=== PATIENT | male | born 1950 | race Caucasian/White ===

== ENCOUNTER → 2023-11-29 08:00 | Outpatient (REF) | payer MEDICARE, OTHER, SELFPAY ==
--- NOTE | 2023-11-29 09:30 | CARDSERVLU ---
Echocardiogram with Lumason completed after protocol screening completed. Allergies verified.
Patent IV site: Rt FA
IV site flushed with 0.9% NaCl pre and post administration.
Diluted bolus method utilized to enhance visualization of ventricular caballero.
Total volume given: ___3.0_ mL
Patient tolerated all procedures well without complications.
INT placed by IV team. Definity given and INT removed by Beti lube technician.
== END ==
LOC: RCS 08:00
PROVIDERS: ATTENDING PHYSICIAN Nuclear Medicine Nuclear Cardiology; FAMILY PHYSICIAN Family Medicine
DX: I25.5 Ischemic cardiomyopathy (principal); I25.10 Atherosclerotic heart disease of native coronary artery without angina pectoris; Z95.5 Presence of coronary angioplasty implant and graft; I10 Essential (primary) hypertension
CPT/HCPCS: 93306; Q9950

== ENCOUNTER 2023-12-05 10:35 | Day surgery (SDC) | payer MEDICARE, OTHER, SELFPAY ==
[2023-12-05] VITALS (18 sets, daily range): BP systolic 99–139; BP diastolic 60–84; BMI 28.0
[2023-12-05 12:02] LABS: Hematocrit 41.9 % (39.0-52.0); Hemoglobin 14.6 g/dL (13.0-18.0); Mean Corp Hgb Conc. 34.8 g/dL (33.0-37.0); Mean Corpuscular Hgb 31.6 pg (27.0-31.0); Mean Corpuscular Volume 90.7 fL (80.0-94.0); Mean Platelet Volume 10.9 fL (7.4-10.4); Platelet Count 275 10^3/uL (130-400); Red Blood Cell Count 4.62 10^6/uL (4.70-6.10); Red Cell Dist. Width 12.8 % (11.5-14.5)
[2023-12-05 12:16] LABS: ALT (SGPT) 43 U/L (0-50); AST (SGOT) 54 U/L (17-59); Albumin 4.5 g/dl (3.5-5.0); Alkaline Phosphatase 99 U/L (38-126); Blood Urea Nitrogen 17 mg/dl (9-20); Calcium 9.3 mg/dl (8.4-10.2); Carbon Dioxide 26 mmol/L (22-30); Chloride 105 mmol/L (98-107); Estimated Creatinine Clearance 81 ml/min; Glucose 93 mg/dl (70-99); Potassium 4.9 mmol/L (3.5-5.1); Sodium 137 mmol/L (135-145); Total Bilirubin 0.8 mg/dl (0.2-1.3); Total Protein 7.3 g/dl (6.3-8.2); eGFR > 60.00
--- NOTE | 2023-12-05 15:04 | ITS.CL.CATH ---
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
Cardiac Catheterization
Procedure Report:
LEFT AND RIGHT HEART CATHETERIZATION
Date of Procedure: December 05, 2023
Referring: Syed Mireles DO
PROCEDURES:
1. Coronary angiogram.
2. Right heart catheterization.
3. Ultrasound-guided access
INDICATION: Mr. Ramirez is a 73-year-old gentleman with past medical history of hypertension, hyperlipidemia, prior CAD status post multiple stents in the LAD, ischemic cardiomyopathy, LVEF of 40 to 45% which recently was found to be decreased
further to 15 to 20% in the setting of progressive fatigue, dyspnea on exertion and an abnormal stress test for which patient is now referred for a left and right heart catheterization. He denies any anginal symptoms. No other heart failure
symptoms like lower extremity edema, orthopnea or PND.
ACCESS:
1. Left radial artery, 6 Slovak sheath, under ultrasound guidance.
2. Right common femoral vein, 6 Slovak sheath, under ultrasound guidance using a micropuncture kit.
HEMODYNAMICS : (mmHg)
RA (m) : 10
RV (s/d,m) : 28, 13
PA (s/d, m) : ,
PCWP (m) : 14
PA saturation: 68.1% on room air
AO saturation: 97.9% on room air
RA saturation: 70% on room air
Heart rate: 60 bpm
Cardiac Output : 4.22 to L/min
Cardiac Index : 2.09 L/min/m-2
Systemic vascular resistance: 1403 dsc^(-5)
Pulmonary vascular resistance: 1.2 li unit
AO (s/d) : 114/63
CORONARY FINDINGS
DOMINANCE: Right
LEFT MAIN: Left main artery is a large-caliber, short vessel which gives rise to the left anterior descending artery and the left circumflex artery. There is minimal luminal irregularities.
LEFT ANTERIOR DESCENDING: The left anterior descending artery is a large-caliber vessel which gives rise to 2 small caliber diagonal branches as it courses through the anterior interventricular groove towards the apex. There is moderate degree of
tortuosity. Prior stents are widely patent. Otherwise there is mild diffuse disease. The first diagonal branch is a very small caliber vessel with moderate to severe diffuse atherosclerotic plaque. A second diagonal branch is also a small
caliber branch with 60% ostial and 40% proximal stenosis.
CIRCUMFLEX: The left circumflex artery is a medium caliber vessel which gives rise to 2 very small caliber OM1 and 2; third large caliber branching obtuse marginal branch. There is mild diffuse atherosclerotic plaque
RIGHT CORONARY ARTERY: The right coronary artery is a large-caliber, dominant vessel which gives rise to the right posterior descending artery and the right posterolateral system. There is mild to moderate diffuse atherosclerotic plaque in the mid
to distal RCA with diffuse disease up to 70% in the proximal portion of the right PDA.
SEDATION: 48 minutes of procedural sedation was utilized. An independent medical equipment technician was present to assist with and help manage the patient's level of consciousness and physiologic status.
RADIATION SUMMARY: Fluoro Time (min): 4.2, Dose (mGy): 422.1, DAP (Gy.cm2) : 33.0
Closure Device:
1. Vascular band over the left radial artery, 11 cc of air.
2. Manual pressure was held over the right common femoral venous access site with successful hemostasis.
CONCLUSIONS
1. Prior LAD stents are widely patent.
2. RPDA and branch vessel disease, out of proportion to explain worsening cardiomyopathy with LVEF down to 15%.
3. Mildly elevated right and left-sided filling pressures with borderline low cardiac output, and mildly elevated systemic vascular resistance.
RECOMMENDATIONS
1. Optimization of goal-directed medical therapy for underlying mixed cardiomyopathy (out of proportion to be explained by underlying coronary artery disease)
2. Close outpatient cardiology follow-up and repeat echocardiogram in 3 months.
Copy to: Syed Mireles DO
Verna Jean Baptiste MD, FACC, [facility]
[2023-12-05] MEDS: NSS 1000 IV (15:09)
== END 2023-12-05 18:50 | disposition home or self-care (01) ==
LOC: CATH 10:35
PROVIDERS: ATTENDING PHYSICIAN Internal Medicine Interventional Cardiology; FAMILY PHYSICIAN Family Medicine; OTHER PHYSICIAN Nuclear Medicine Nuclear Cardiology
DX: I25.10 Atherosclerotic heart disease of native coronary artery without angina pectoris (principal); Z95.5 Presence of coronary angioplasty implant and graft; I10 Essential (primary) hypertension; I42.8 Other cardiomyopathies; R06.09 Other forms of dyspnea
CPT/HCPCS: 99153; 99152; 76937; 80053; 85027; 93456; C1894; Q9967

== ENCOUNTER 2023-12-07 13:56 | Emergency (ER) | payer MEDICARE, OTHER, SELFPAY ==
[2023-12-07 13:59] VITALS: BP 130/92
[2023-12-07 14:15] VITALS: BP 123/78
[2023-12-07 14:17] VITALS: BP 123/78
--- NOTE | 2023-12-07 14:44 | ED.GENMED ---
History of Present Illness
<Kay Kraus PA-C - Last Filed: 12/08/23 08:55>
General
Chief Complaint: Chest Pain
Source: patient
Exam Limitations: none
Time Seen by Provider: 12/07/23 14:23
Nursing documentation reviewed up to this point in time: agreed with
Travel History
Have you had any contact with someone who has COVID-19?: No
Do you have any symptoms of coronavirus? Fever > 100 degrees, chills, cough, shortness of breath, sore throat, loss of taste or smell, muscle aches, or headache?: No
History of Present Illness
History of Present Illness:
73 y/o M with h/o [place], s/p LAD stent [address] varela
has had ongoing CARL for a few months with EF which was 40% after his [place] down to 15-20% on recent echo
had a L & R heart cath on 12/[address] caraballo showing patent LAD stent but some RPDA and branch vessel disease that doesn't explain his cardiomyopathy
plan was to treat with farxiga and entresto for a few mo and reassess
pt has had some intermittent chest tightness startinga round 2 am when he was awake but it was intermittent and minimal
he told his about it but he had no other symptoms
he ate soup for lunch and at the end started havin gmore significant left sided chest pain iup to left neck and shoulder and faustina to upper abdomen
it was 8/10
he didn't take anything for it but decided to come in
no associated sob, pleuriti cpain, cough, cold symptoms, syncope, fever.
he has 3/10 pain now
nothing make it better or worse
no alcohol use
Past History
<Kay Kraus PA-C - Last Filed: 12/08/23 08:55>
Past History
ED Past Medical History: CAD, HTN, Hypercholesterolemia and Hypothyroidism
ED Past Surgical History: Orthopedic
Social History
Tobacco: Non-smoker
Personal:
Living: with family
Family History
Family History: Negative Early CAD
Review of Systems
<Kay Kraus PA-C - Last Filed: 12/08/23 08:55>
Review of Systems
Allergies reviewed?: Yes
All Other Systems: Not applicable
Phy Exam
<Kay Kraus PA-C - Last Filed: 12/08/23 08:55>
Physical Exam
Physical Exam:
GENERAL: Alert , in no apparent distress, well appearing
EYE: pupils equal and reactive
NECK: Supple, nontender
ENT: o/p clr, mmm.
chest wall:' mild tenderness Left upper chest wall no rash
CARDIAC: Regular rate and rhythm .no edema, no appreciated murmur
LUNGS: Clear breath sounds bilaterally, no acute respiratory distress, no wheezes/rales/rhonchi
ABDOMEN: Soft, without focal tenderness, no r/g, no cvat, normal bowel sounds
NEUROLOGICAL: Alert and oriented, no focal neuro deficits
SKIN: Warm and dry, skin intact.
MUSCULOSKELETAL: No edema, well perfused. neg nano's sign
PSYCH: Normal and appropriate interaction.
Scores
<Kay Kraus PA-C - Last Filed: 12/08/23 08:55>
Heart Score for Chest Pain Patients
Heart Score for Chest Pain Patients: 5
Heart Score Risk: 20.3% MACE over next 6 weeks
<Higinio Mason PA-C - Last Filed: 12/07/23 20:11>
Heart Score for Chest Pain Patients
STEMI patient?: No
History: Slightly or Non-Suspicious
ECG: Nonspecific Repolarization
Age: >/= 65 years
Risk Factors: >/= 3 Risk Factors or History of CAD
Troponin: </= Normal Limit
Heart Score for Chest Pain Patients: 5
Heart Score Risk: 20.3% MACE over next 6 weeks
Course
<Kay Kraus PA-C - Last Filed: 12/08/23 08:55>
Orders/Labs/Results
Orders:
Orders
12/07/23 13:58
Electrocardiogram (*1) Urgent
Reason for Study: Chest Pain
EKG- Treatment ONCE
12/07/23 14:40
CR Chest - 2 Views Urgent
Comment:
Reason For Exam: chest pain
12/07/23 14:49
Complete Blood Count/With Diff Urgent
Comprehensive Metabolic Panel Urgent
Lipase Urgent
NT-proBNP Urgent
Troponin I Urgent
12/07/23 17:17
EKG- Treatment ONCE
12/07/23 18:10
Troponin I Urgent
12/07/23 18:17
Electrocardiogram (*1) Urgent
Reason for Study: Chest Pain
Abnormal Lab Results
12/07/23
14:49
RBC 4.45 L 10^6/uL
(4.70-6.10)
MCH 32.4 H pg
(27.0-31.0)
MPV 11.0 H fL
(7.4-10.4)
Absolute Monos (auto) 0.8 H 10^3/uL
(0.1-0.6)
BUN 22 H mg/dl
(9-20)
Glucose 160 H mg/dl
(70-99)
12/07/23 14:49
12/07/23 14:49
Vital Signs
Initial and Last Documented VS:
Initial Vital Signs
Temp Pulse Resp BP Pulse Ox
97.7 F 64 18 130/92 99
12/07/23 13:59 12/07/23 13:59 12/07/23 13:59 12/07/23 13:59 12/07/23 13:59
Last Documented Vital Signs
Temp Pulse Resp BP Pulse Ox
97.7 F 52 14 140/71 99
12/07/23 13:59 12/07/23 19:00 12/07/23 19:00 12/07/23 19:00 12/07/23 19:00
<Elroy Giraldo MD - Last Filed: 12/07/23 17:25>
Orders/Labs/Results
Orders:
Orders
12/07/23 13:58
Electrocardiogram (*1) Urgent
Reason for Study: Chest Pain
EKG- Treatment ONCE
12/07/23 14:40
CR Chest - 2 Views Urgent
Comment:
Reason For Exam: chest pain
12/07/23 14:49
Complete Blood Count/With Diff Urgent
Comprehensive Metabolic Panel Urgent
Lipase Urgent
NT-proBNP Urgent
Troponin I Urgent
12/07/23 17:17
EKG- Treatment ONCE
12/07/23 18:10
Troponin I Urgent
12/07/23 18:17
Electrocardiogram (*1) Urgent
Reason for Study: Chest Pain
Abnormal Lab Results
12/07/23
14:49
RBC 4.45 L 10^6/uL
(4.70-6.10)
MCH 32.4 H pg
(27.0-31.0)
MPV 11.0 H fL
(7.4-10.4)
Absolute Monos (auto) 0.8 H 10^3/uL
(0.1-0.6)
BUN 22 H mg/dl
(9-20)
Glucose 160 H mg/dl
(70-99)
12/07/23 14:49
12/07/23 14:49
Vital Signs
Initial and Last Documented VS:
Initial Vital Signs
Temp Pulse Resp BP Pulse Ox
97.7 F 64 18 130/92 99
12/07/23 13:59 12/07/23 13:59 12/07/23 13:59 12/07/23 13:59 12/07/23 13:59
Last Documented Vital Signs
Temp Pulse Resp BP Pulse Ox
97.7 F 52 14 140/71 99
12/07/23 13:59 12/07/23 19:00 12/07/23 19:00 12/07/23 19:00 12/07/23 19:00
<Higinio Mason PA-C - Last Filed: 12/07/23 20:11>
Orders/Labs/Results
Orders:
Orders
12/07/23 13:58
Electrocardiogram (*1) Urgent
Reason for Study: Chest Pain
EKG- Treatment ONCE
12/07/23 14:40
CR Chest - 2 Views Urgent
Comment:
Reason For Exam: chest pain
12/07/23 14:49
Complete Blood Count/With Diff Urgent
Comprehensive Metabolic Panel Urgent
Lipase Urgent
NT-proBNP Urgent
Troponin I Urgent
12/07/23 17:17
EKG- Treatment ONCE
12/07/23 18:10
Troponin I Urgent
12/07/23 18:17
Electrocardiogram (*1) Urgent
Reason for Study: Chest Pain
Abnormal Lab Results
12/07/23
14:49
RBC 4.45 L 10^6/uL
(4.70-6.10)
MCH 32.4 H pg
(27.0-31.0)
MPV 11.0 H fL
(7.4-10.4)
Absolute Monos (auto) 0.8 H 10^3/uL
(0.1-0.6)
BUN 22 H mg/dl
(9-20)
Glucose 160 H mg/dl
(70-99)
12/07/23 14:49
12/07/23 14:49
Vital Signs
Initial and Last Documented VS:
Initial Vital Signs
Temp Pulse Resp BP Pulse Ox
97.7 F 64 18 130/92 99
12/07/23 13:59 12/07/23 13:59 12/07/23 13:59 12/07/23 13:59 12/07/23 13:59
Last Documented Vital Signs
Temp Pulse Resp BP Pulse Ox
97.7 F 52 14 140/71 99
12/07/23 13:59 12/07/23 19:00 12/07/23 19:00 12/07/23 19:00 12/07/23 19:00
<Kay Kraus PA-C - Last Filed: 12/08/23 08:55>
MDM/Problems Addressed
Differential Diagnosis Includes:
acs, chest wall pain, gerd,
MDM/Problems Addressed:
73 y/o M with h/o LAD stent
had recent cardiac cath 2 days ago for cardiomyopathy
no obvious signifciant disease to explain EF 15%
on farxiga
here for chest pain, worse at 1315 today at rest, radiating to neck
feels better now than it did
not pleuritic
on exam looks comfortable, stable vitals, nontoxic
slight tenderness to left chesrt wall
abdomen notnender
no concerning symptoms or signs of PE.
ekg nonischemic
1st trop neg
spoke with dr. barajas from [facility] who reviewed the chart and did not think that this patient would require further work up if the 2 trop onins were negative
pt was also seen by ed attending who also spoke directly with the piano technician to confirm that there would not be further work up inpatient needed if the troponins remained negative, despite his low EF;
1830
pt has remained pain free
he is hungry and is requesting to eat
repeat trop and ekg to be done soon and if neg, pt discharged home
if trop bump, then will admit
<Higinio Mason PA-C - Last Filed: 12/07/23 20:11>
*Critical Care Note
Total Time (30-74mins, 75-104mins- exclusive of procedures): Not Applicable
<Higinio Mason PA-C - Last Filed: 12/07/23 20:11>
Update Note
Update Note:
1800: Assumed care of pt from Deedee Kraus PA-C. Pt is 2d s/p cardiac cath due to acute cardiomyopathy. EF of 15%. Arrives with acute chest pain. Stable in ED, pain now resolved. Awaiting repeat trop
190: Repeat trop negative, stable for d/c
ED Attending Note
<Kay Kraus PA-C - Last Filed: 12/08/23 08:55>
-
Portions of this chart may have been created with voice recognition software.� Occasional wrong word or��sound alike� substitutions may have occurred due to the inherent limitations of voice recognition software.
<Elroy Giraldo MD - Last Filed: 12/07/23 17:25>
ED Attending Note
I performed the substantive portion of visit, reviewed & personally made and approve the management plan that is documented in note by myself or KATHRINE.: Yes
I performed a history and physical exam of patient and discussed management with resident, I reviewed resident's note and agree with documented findings and plan of care.: Yes
ED Attending Note:
73-year-old male with a cardiac history presents with episodes of left sided chest tightness. Had an episode at 2 AM and a recurring episode at 115. No pleuritic pain ongoing shortness of breath for months. This led to an echocardiogram that
showed 15 to 20% EF. Catheterization done 12/05. Currently treated with Farxiga and Entresto.
On exam patient is nontoxic in no distress. Lungs are clear and equal. Heart regular rate and rhythm. Abdomen nontender. Extremities are unremarkable.
EKG with no acute changes. Troponin is stable. Chest x-ray is negative. proBNP is stable. Patient is currently asymptomatic. I discussed with patient's piano technician. Given his stable recent cardiac catheterization they feel if he has 2
negative troponins that from a cardiac standpoint he is clear and no further testing is needed. Highly doubt pulmonary emboli or other serious etiology. Awaiting repeat Trope and EKG and again if patient remains stable will be discharged to
follow-up
Discharge Plan
Departure
Patient Disposition: Home (Routine Discharge)
Date of Disposition: 12/07/23
Time of Disposition: 19:05
Patient with high blood pressure during this ER visit?: No
Condition: Fair
Covid-19: Not Applicable
Discharge Problem:
Chest pain
Instructions: Chest Pain DCA Follow Up
Prescriptions:
No Action
aspirin 81 MG tablet,chewable
81 mg PO DAILY Qty: 30 0RF
multivitamin Tablet
1 tab PO QPM
carvedilol 12.5 mg tablet
12.5 mg PO BID
atorvastatin 80 MG tablet
80 mg PO QPM
levothyroxine 50 MCG tablet
50 mcg PO DAILY@0700
gabapentin 300 mg capsule
300 mg PO BID
Entresto 24-26 mg tablet
1 tab PO BID Qty: 60 5RF
Rx Instructions:
Start on 12/07/23 am
dapagliflozin propanediol [Farxiga] 10 mg tablet
10 mg PO DAILY Qty: 30 5RF
Referrals:
Omkar Mtz MD [Family Provider] - Follow up in 2-3 days
Activity Restrictions/Additional Instructions:
WE ARE NOT SURE THE CAUSE OF YOUR CHEST PAIN
YOU HAD A WORK UP FOR RULING OUT EMERGENT CAUSES.
YOU SHOULD FOLLOW UP WITH YOUR PRICING LEAD THIS WEEK
RETURN FOR WORSENING SYPMTOMS
FOR NOW, AVOID STRENUOUS ACTIVITY
RETURN NEEDED.
Interventions
Interventions:
*Risk Screen - Suicide Last Done: 12/07/23 14:18
*General Assessment Last Done: 12/07/23 14:16
*Neglect/Abuse Screening Last Done: 12/07/23 14:18
ED- Fall Risk Assessment Last Done: 12/07/23 19:17
*ED COVID-19 Vaccine History Last Done: 12/07/23 14:16
*Nursing Disposition Last Done: 12/07/23 19:16
ED- Cardiac Assessment Last Done: 12/07/23 14:18
Discharge Date and Time
Discharge Date/Time: 12/07/23 19:17
[2023-12-07 15:38] LABS: % Basophils 0.5 % (0-2); % Eosinophils 3.8 % (0-6); % Immature Granulocytes 0.3 % (0-0.5); % Lymphocytes 29.3 % (20.5-51.1); % Monocytes 8.2 % (1.7-9.3); % Neutrophils 57.9 % (42.2-75.2); Absolute Basophils 0.1 10^3/uL (0-0.2); Absolute Eosinophils 0.4 10^3/uL (0-0.7); Absolute Monocytes 0.8 10^3/uL (0.1-0.6); Absolute Neutrophils 5.9 10^3/uL (1.4-6.5); Hematocrit 40.9 % (39.0-52.0); Hemoglobin 14.4 g/dL (13.0-18.0); Mean Corp Hgb Conc. 35.2 g/dL (33.0-37.0); Mean Corpuscular Hgb 32.4 pg (27.0-31.0); Mean Corpuscular Volume 91.9 fL (80.0-94.0); Nucleated Red Blood Cells % 0 % (-); Platelet Count 260 10^3/uL (130-400); Red Blood Cell Count 4.45 10^6/uL (4.70-6.10); Red Cell Dist. Width 12.5 % (11.5-14.5); White Blood Cell Count 10.2 10^3/uL (4.8-10.8)
[2023-12-07 15:58] LABS: ALT (SGPT) 43 U/L (0-50); AST (SGOT) 51 U/L (17-59); Albumin 4.1 g/dl (3.5-5.0); Alkaline Phosphatase 106 U/L (38-126); Blood Urea Nitrogen 22 mg/dl (9-20); Calcium 9.3 mg/dl (8.4-10.2); Carbon Dioxide 24 mmol/L (22-30); Chloride 105 mmol/L (98-107); Glucose 160 mg/dl (70-99); Lipase 161 U/L (23-300); Potassium 4.6 mmol/L (3.5-5.1); Sodium 136 mmol/L (135-145); Total Bilirubin 0.7 mg/dl (0.2-1.3); Total Protein 6.8 g/dl (6.3-8.2); eGFR > 60.00
[2023-12-07 16:13] LABS: NT-proBNP 194 pg/ml; Troponin I 0.013 ng/ml
[2023-12-07 18:10] VITALS: BP 129/76
[2023-12-07 19:00] VITALS: BP 140/71
[2023-12-07 19:00] LABS: Troponin I 0.013 ng/ml
== END 2023-12-07 19:17 | disposition home or self-care (01) ==
LOC: EMR 13:56
PROVIDERS: Physician Assistant; EMERGENCY PHYSICIAN Emergency Medicine; FAMILY PHYSICIAN Family Medicine
DX: R07.89 Other chest pain (principal); I25.2 Old myocardial infarction; Z95.5 Presence of coronary angioplasty implant and graft
CPT/HCPCS: 99285; 71046; 80053; 83690; 83880; 84484; 85025; 93005

== ENCOUNTER → 2023-12-14 07:04 | Outpatient (REF) | payer MEDICARE, OTHER, SELFPAY ==
[2023-12-14 08:37] LABS: Blood Urea Nitrogen 27 mg/dl (9-20); Calcium 9.7 mg/dl (8.4-10.2); Carbon Dioxide 28 mmol/L (22-30); Chloride 100 mmol/L (98-107); Glucose 110 mg/dl (70-99); Magnesium 2.2 mg/dl (1.6-2.3); Potassium 4.3 mmol/L (3.5-5.1); Sodium 137 mmol/L (135-145); eGFR > 60.00
== END ==
LOC: REG 07:04
PROVIDERS: ATTENDING PHYSICIAN Internal Medicine Interventional Cardiology; FAMILY PHYSICIAN Family Medicine; OTHER PHYSICIAN Nuclear Medicine Nuclear Cardiology
DX: I50.9 Heart failure, unspecified (principal)
CPT/HCPCS: 36415; 80048; 83735

== ENCOUNTER → 2023-12-28 09:13 | Outpatient (REF) | payer MEDICARE, OTHER, SELFPAY ==
[2023-12-28 10:46] LABS: PSA, Total - Diagnostic 7.08 ng/ml (0.0-4.0)
== END ==
LOC: RAD 09:13
PROVIDERS: ATTENDING PHYSICIAN Internal Medicine Hematology & Oncology
DX: C61 Malignant neoplasm of prostate (principal)
CPT/HCPCS: 36415; 84153

== ENCOUNTER 2024-01-17 06:35 | Outpatient (RCR) | payer MEDICARE, OTHER, SELFPAY | END 2024-01-17 23:59 | disposition home or self-care (01) | LOC: CRHB 06:35 | PROVIDERS: ATTENDING PHYSICIAN Nuclear Medicine Nuclear Cardiology; FAMILY PHYSICIAN Family Medicine | DX: I50.20 Unspecified systolic (congestive) heart failure (principal); I25.5 Ischemic cardiomyopathy; I10 Essential (primary) hypertension; Z95.5 Presence of coronary angioplasty implant and graft | CPT/HCPCS: G0422 ==

== ENCOUNTER 2024-02-17 06:32 | Outpatient (RCR) | payer MEDICARE, OTHER, SELFPAY | END 2024-02-17 23:59 | disposition home or self-care (01) | LOC: CRHB 06:32 | PROVIDERS: ATTENDING PHYSICIAN Nuclear Medicine Nuclear Cardiology; FAMILY PHYSICIAN Family Medicine | DX: I50.22 Chronic systolic (congestive) heart failure (principal); I50.20 Unspecified systolic (congestive) heart failure (principal); I25.5 Ischemic cardiomyopathy; I25.10 Atherosclerotic heart disease of native coronary artery without angina pectoris; Z95.5 Presence of coronary angioplasty implant and graft | CPT/HCPCS: G0422; G0423 ==

== ENCOUNTER 2024-02-28 06:51 | Outpatient (RCR) | payer MEDICARE, OTHER, SELFPAY | END 2024-02-28 23:59 | disposition home or self-care (01) | LOC: CRHB 06:51 | PROVIDERS: ATTENDING PHYSICIAN Nuclear Medicine Nuclear Cardiology; FAMILY PHYSICIAN Family Medicine | DX: I50.22 Chronic systolic (congestive) heart failure (principal) | CPT/HCPCS: G0422; G0423 ==

== ENCOUNTER → 2024-03-04 07:38 | Outpatient (REF) | payer MEDICARE, OTHER, SELFPAY ==
--- NOTE | 2024-03-04 10:05 | CARDSERVLU ---
Echocardiogram with Lumason completed after protocol screening completed. Allergies verified.
Patent IV site: _LAC____
IV site flushed with 0.9% NaCl pre and post administration.
Diluted bolus method utilized to enhance visualization of ventricular caballero.
Total volume given: __5__ mL
Patient tolerated all procedures well without complications.
== END ==
LOC: RCS 07:38
PROVIDERS: ATTENDING PHYSICIAN Internal Medicine Interventional Cardiology; FAMILY PHYSICIAN Family Medicine
DX: I25.5 Ischemic cardiomyopathy (principal)
CPT/HCPCS: 93308; Q9950

== ENCOUNTER → 2024-04-02 12:36 | Outpatient (REF) | payer MEDICARE, OTHER, SELFPAY | LOC: RAD 12:36 | PROVIDERS: ATTENDING PHYSICIAN Physician Assistant; FAMILY PHYSICIAN Family Medicine | DX: M79.661 Pain in right lower leg (principal) | CPT/HCPCS: 93971 ==

== ENCOUNTER → 2024-05-04 08:06 | Day surgery (SDC) | payer MEDICARE, OTHER, SELFPAY ==
[2024-04-24 10:51] VITALS: BMI 26.8
[2024-05-04] VITALS (10 sets, daily range): BP systolic 98–132; BP diastolic 60–77; BMI 26.6
--- NOTE | 2024-05-04 09:46 | W.ICD.CONTRA ---
Post ICD/RELATIONS SPECIALIST-D
-
History of [place]?: Yes
LV Function
Left ventricular function study result?: Ejection Fraction </= 35%
ACEI/ARB/ARNI
Patient already on ACEI/ARB/ARNI: Yes
Beta-Hattie
Patient already on Beta Hattie: Yes
--- NOTE | 2024-05-04 13:05 | ITS.CL.ICD ---
Casing Cleaner - ICD
Implantable Cardioverter Defibrillator
Procedure Report:
ICD IMPLANTATION REPORT
Date of Procedure: May 04, 2024
Primary Care Provider:
PROCEDURES:
ICD Implant
INDICATION FOR PROCEDURE:
Heart failure with reduced ejection fraction and [place] heart association class III congestive heart failure. Ischemic cardiomyopathy.
Duration of HF > 3 mo despite guideline directed medical therapy at maximally tolerated doses (Entresto, Coreg, Aldactone, Jardiance, aspirin, Aldactone)
Life expectancy > 1 year.
Primary prevention
Lidocaine with epi was used for local anesthesia. Central venous access was obtained via axillary venipuncture. An incision was made along the left chest and a pre-pectoral pocket was formed. Using a Seldinger technique and peel-away sheaths, the
pacing leads were placed under fluoroscopic guidance.
Antibiotic pouch was used
Once testing (see below) showed adequate and stable function, the leads were secured using the suture sleeves. The pocket was liberally irrigated with antibiotic solution. The leads were connected to the generator header and the leads and
generator were placed within the pocket. Fluoroscopy confirmed stable lead position. The pocket was closed in the typical fashion.
FLUOROSCOPY:
Fluoroscopy was used to guide lead placement.
IMPLANTS:
ICD Medtronic [id number], SN [id number], Left Pectoral
RA Medtronic 5076, SN [id number], RAA
RV Medtronic 6935, SN [id number], RV apical septum
DEVICE TESTING:
Sensing: RA 2.2 mV, RV 8 mV
Capture: RA 0.75 V@0.5ms, RV 0.75 V@0.5ms
Ohms: RA 570, RV 620
FINAL PROGRAMMING:
Josue Pacing: AAIR <=> DDDR 50-130 ppm
Tachy parameters:
VF: 188 bpm, ATP X 1, Shocks
VT: 150 bpm, Monitor
COMPLICATIONS:
None
CONCLUSIONS:
Successful implant of dual chamber ICD system.
RECOMMENDATIONS:
Post op care (tele, CXR, IV abx).
In-Office wound check in 5-7 days.
Copy to:
Dr. Michael Mtz
Dr. Syed Mireles
--- NOTE | 2024-05-04 14:21 | W.PN.UPDATE ---
Update Note
Progress Note Update
Pt seen post DC ICD implant. Left ACW w/aquacel dressing CDI, pressure dressing on top, no ht/bleeding, non tender. Post EKG APaced 50, no acute changes. Post CXR w/stable lead position, no pneumothorax. Activity limitations reviewed w/pt, .
Incision check at [facility] in 1 week. Home later today if device site/tele remain stable.
[2024-05-04] MEDS: ANCEF 5 IV (16:50)
[2024-05-04] MEDS: FLUSH (NSS) 1 FLUSH IV (16:51)
== END | disposition home or self-care (01) ==
LOC: CATH 08:06
PROVIDERS: ATTENDING PHYSICIAN Internal Medicine Cardiovascular Disease; FAMILY PHYSICIAN Family Medicine; OTHER PHYSICIAN Nuclear Medicine Nuclear Cardiology
DX: I11.0 Hypertensive heart disease with heart failure (principal); I50.22 Chronic systolic (congestive) heart failure; I25.5 Ischemic cardiomyopathy; R06.09 Other forms of dyspnea; R42 Dizziness and giddiness; R00.2 Palpitations; I25.10 Atherosclerotic heart disease of native coronary artery without angina pectoris; E78.5 Hyperlipidemia, unspecified; E03.9 Hypothyroidism, unspecified; Z85.46 Personal history of malignant neoplasm of prostate; Z95.5 Presence of coronary angioplasty implant and graft; Z79.82 Long term (current) use of aspirin; Z79.84 Long term (current) use of oral hypoglycemic drugs
CPT/HCPCS: 33249; C1892; 71045; 93005; C1721; C1777; C1898; Q9967

== ENCOUNTER → 2024-07-14 09:40 | Outpatient (REF) | payer MEDICARE, OTHER, SELFPAY ==
[2024-07-14 12:46] LABS: PSA, Total - Diagnostic 7.52 ng/ml (0.0-4.0)
== END ==
LOC: REG 09:40
PROVIDERS: ATTENDING PHYSICIAN Urology; FAMILY PHYSICIAN Family Medicine
DX: C61 Malignant neoplasm of prostate (principal)
CPT/HCPCS: 36415; 84153

== ENCOUNTER → 2024-08-25 07:30 | Outpatient (REF) | payer MEDICARE, OTHER, SELFPAY ==
[2024-08-25 09:19] LABS: ALT (SGPT) 33 U/L (0-50); AST (SGOT) 41 U/L (17-59); Albumin 4.4 g/dl (3.5-5.0); Alkaline Phosphatase 103 U/L (38-126); Blood Urea Nitrogen 20 mg/dl (9-20); Calcium 9.8 mg/dl (8.4-10.2); Carbon Dioxide 27 mmol/L (22-30); Chloride 103 mmol/L (98-107); Glucose 94 mg/dl (70-99); HDL Cholesterol 53 mg/dl; LDL Cholesterol, Calculated 71 mg/dl; Potassium 4.8 mmol/L (3.5-5.1); Sodium 143 mmol/L (135-145); Total Bilirubin 0.9 mg/dl (0.2-1.3); Total Cholesterol 144 mg/dl (50-199); Total Protein 7.1 g/dl (6.3-8.2); Triglyceride 102 mg/dl (10-149); Very Low Density Lipoprotein 20 mg/dl (0-30); eGFR > 60.00
--- NOTE | 2024-08-25 09:31 | CARDSERVLU ---
Echocardiogram with Lumason completed after protocol screening completed. Allergies verified.
Patent IV site: __new start 1st attempt 24 ___
IV site flushed with 0.9% NaCl pre and post administration.
Diluted bolus method utilized to enhance visualization of ventricular caballero.
Total volume given: __4.0__ mL
dcd at completion of test
Patient tolerated all procedures well without complications.
== END ==
LOC: RCS 07:30
PROVIDERS: ATTENDING PHYSICIAN Nuclear Medicine Nuclear Cardiology; FAMILY PHYSICIAN Family Medicine
DX: I25.5 Ischemic cardiomyopathy (principal); I25.10 Atherosclerotic heart disease of native coronary artery without angina pectoris; E78.5 Hyperlipidemia, unspecified
CPT/HCPCS: 36415; 80053; 80061; 93306; Q9950

== ENCOUNTER → 2024-12-29 08:57 | Outpatient (REF) | payer MEDICARE, OTHER, SELFPAY | LOC: REG 08:57 | PROVIDERS: ATTENDING PHYSICIAN Urology; FAMILY PHYSICIAN Family Medicine | DX: C61 Malignant neoplasm of prostate (principal) | CPT/HCPCS: 36415; 84153 ==

== ENCOUNTER → 2025-02-24 09:06 | Outpatient (REF) | payer MEDICARE, OTHER, SELFPAY ==
[2025-02-24 11:19] LABS: Free T4 1.21 ng/dl (0.78-2.19)
[2025-02-24 11:32] LABS: TSH 2.26 uIU/ml (0.47-4.68)
[2025-02-24 11:55] LABS: ALT (SGPT) 33 U/L (0-50); AST (SGOT) 38 U/L (17-59); Albumin 4.5 g/dl (3.5-5.0); Alkaline Phosphatase 102 U/L (38-126); Blood Urea Nitrogen 22 mg/dl (9-20); Calcium 9.8 mg/dl (8.4-10.2); Carbon Dioxide 24 mmol/L (22-30); Chloride 105 mmol/L (98-107); Glucose 98 mg/dl (70-99); HDL Cholesterol 46 mg/dl; LDL Cholesterol, Calculated 77 mg/dl; Potassium 4.4 mmol/L (3.5-5.1); Sodium 138 mmol/L (135-145); Total Bilirubin 1.1 mg/dl (0.2-1.3); Total Cholesterol 143 mg/dl (50-199); Total Protein 6.9 g/dl (6.3-8.2); Triglyceride 101 mg/dl (10-149); Very Low Density Lipoprotein 20 mg/dl (0-30); eGFR > 60.00
== END ==
LOC: REG 09:06
PROVIDERS: ATTENDING PHYSICIAN Family Medicine; REFERRING PHYSICIAN Nuclear Medicine Nuclear Cardiology
DX: E03.9 Hypothyroidism, unspecified (principal); Z95.5 Presence of coronary angioplasty implant and graft; I25.10 Atherosclerotic heart disease of native coronary artery without angina pectoris; E78.5 Hyperlipidemia, unspecified
CPT/HCPCS: 36415; 80053; 80061; 84439; 84443

== ENCOUNTER → 2025-04-08 08:20 | Outpatient (REF) | payer MEDICARE, OTHER, SELFPAY ==
--- NOTE | 2025-04-08 10:02 | CARDSERVDEF ---
Echocardiogram with Definity completed after protocol screening completed. Allergies verified.
Patent IV site Left forearm 22 G PC by IV team____
IV site flushed with 0.9% NaCl pre and post administration.
Diluted bolus method utilized to enhance visualization of ventricular caballero.
Total volume given: __5__ mL
Patient tolerated all procedures well without complications.
Heplock D/C ed at 0950, site clear, no redness, no edema. Pressure held, no bleeding. 2x2 applied and taped. Pt offers no complaints.
== END ==
LOC: RCS 08:20
PROVIDERS: ATTENDING PHYSICIAN Nuclear Medicine Nuclear Cardiology; FAMILY PHYSICIAN Family Medicine
DX: I25.5 Ischemic cardiomyopathy (principal); I10 Essential (primary) hypertension
CPT/HCPCS: 93306; Q9957

== ENCOUNTER 2025-05-05 06:30 | Day surgery (SDC) | payer MEDICARE, OTHER, SELFPAY ==
[2025-05-05 09:33] LABS: Glucose - Point of Care 106 mg/dl (70-99)
== END 2025-05-05 11:28 | disposition home or self-care (01) ==
LOC: GI 06:30
PROVIDERS: ATTENDING PHYSICIAN Internal Medicine Gastroenterology
DX: Z12.11 Encounter for screening for malignant neoplasm of colon (principal); Z86.0100 Personal history of colon polyps, unspecified; K64.8 Other hemorrhoids
CPT/HCPCS: G0105; 82962

== ENCOUNTER → 2025-06-29 10:19 | Outpatient (REF) | payer MEDICARE, OTHER, SELFPAY ==
[2025-06-29 16:49] LABS: PSA, Total - Diagnostic 6.81 ng/ml (0.0-4.0)
== END ==
LOC: REG 10:19
PROVIDERS: ATTENDING PHYSICIAN Urology; FAMILY PHYSICIAN Family Medicine
DX: C61 Malignant neoplasm of prostate (principal)
CPT/HCPCS: 36415; 84153

== ENCOUNTER → 2025-08-02 08:32 | Outpatient (REF) | payer MEDICARE, OTHER, SELFPAY ==
[2025-08-02 09:53] LABS: Hematocrit 44.7 % (39.0-52.0); Hemoglobin 15.2 g/dL (13.0-18.0); Mean Corp Hgb Conc. 34.0 g/dL (33.0-37.0); Mean Corpuscular Volume 92.7 fL (80.0-94.0); Nucleated Red Blood Cells % 0 % (-); Platelet Count 242 10^3/uL (130-400); Red Cell Dist. Width 13.1 % (11.5-14.5)
[2025-08-02 10:43] LABS: Glycohemoglobin (HgbA1c) 6.4 % (4.0-5.6)
[2025-08-02 11:15] LABS: ALT (SGPT) 32 U/L (0-50); AST (SGOT) 41 U/L (17-59); Albumin 4.2 g/dl (3.5-5.0); Alkaline Phosphatase 113 U/L (38-126); Blood Urea Nitrogen 15 mg/dl (9-20); Calcium 9.5 mg/dl (8.4-10.2); Carbon Dioxide 28 mmol/L (22-30); Chloride 105 mmol/L (98-107); Glucose 92 mg/dl (70-99); HDL Cholesterol 49 mg/dl; LDL Cholesterol, Calculated 82 mg/dl; Potassium 4.5 mmol/L (3.5-5.1); Sodium 139 mmol/L (135-145); Total Protein 7.0 g/dl (6.3-8.2); Very Low Density Lipoprotein 21 mg/dl (0-30); eGFR > 60.00
== END ==
LOC: REG 08:32
PROVIDERS: ATTENDING PHYSICIAN Nuclear Medicine Nuclear Cardiology; FAMILY PHYSICIAN Family Medicine
DX: E66.3 Overweight (principal); Z83.3 Family history of diabetes mellitus; Z00.00 Encounter for general adult medical examination without abnormal findings; I25.5 Ischemic cardiomyopathy; E03.9 Hypothyroidism, unspecified; Z79.899 Other long term (current) drug therapy
CPT/HCPCS: 36415; 80053; 80061; 83036; 85025